=== PATIENT | female | born 1955 | race Caucasian/White ===

== ENCOUNTER → 2017-08-19 | Outpatient (CLI) | payer BC ==
[~2017-08-19] MED LIST: AMBI10TA PO; ARMOUR THYROID; ASPI81 PO; ATOR20TA42 PO; CIPRHC10A AS; CYMB60CA PO; LORT5TAB PO; LOTR5CAP2 PO; OYST500T77 PO
--- NOTE | 2017-08-24 11:26 | RSPPFT ---
DATE OF PROCEDURE: 08/19/17 COMMENTS: Spirometry demonstrates an FEV1 of 1.6 at 63% of predicted, FVC of 2.0 at 63%, FEF 25-75 is 52%. Post-bronchodilator study demonstrated no significant change. Lung volumes demonstrated a raised RV/TLC ratio suggesting hyperinflation and air trapping. Airways resistance is increased. Flow volume loops are suggestive of a restrictive pattern. Diffusion capacity is moderately reduced and normal when corrected for volume. IMPRESSION: 1. Mild to moderate restrictive disease. 2. Additional mild obstructive disease. 3. No significant change following use of bronchodilator. 4. Moderate loss in diffusion capacity.
== END ==
LOC: HRSP 11:58
PROVIDERS: ATTEND Internal Medicine Cardiovascular Disease
DX: R06.02 Shortness of breath (principal)
CPT/HCPCS: 94060; 94726; 94729